=== PATIENT | male | born 1975 | race Two or more races ===

== ENCOUNTER 2018-04-14 07:49 | Day surgery (SDC) | payer BC ==
[~2018-04-14] VITALS: Ht 180.3 cm; Wt 70.8 kg
[2018-04-14] MEDS ORDERED: ATORVASTATIN CA20 MG ORAL (09:00)
[2018-04-14] MEDS ORDERED: COQ1050 MG PO (09:00)
[2018-04-14] MEDS ORDERED: ASPIR 8181 MG ORAL (09:00)
[2018-04-14] MEDS ORDERED: FISH OIL CAP1000 MG ORAL (09:00)
[2018-04-14] MEDS ORDERED: MULTIVITAMINS1 EAC8 ORAL (09:00)
[2018-04-14] MEDS ORDERED: PROBIOTIC1 EAC2 PO (09:00)
[2018-04-14 09:03] VITALS: BP 111/73
[2018-04-14] MEDS ORDERED: LR 1000ml ONE (09:30)
[2018-04-14] MEDS ORDERED: Propofol 200mg/20ml IV ONE (09:30)
--- NOTE | 2018-04-14 09:35 | Short Stay Surgery H&P ---
History of Present Illness History of Present Illness Chief Complaint see recent office note HPI Fredi Rubio is a 43 year old male who was admitted on for Colon Screening, Abdominal Pain Patient History Allergies: Coded Allergies: PENICILLINS (Verified Allergy, Intermediate, 04/14/18) hives Medication History Scheduled Aspirin* (Aspir 81*), 81 MG ORAL DAILY, (Reported) Atorvastatin Calcium* (Atorvastatin Calcium*), 10 MG ORAL BEDTIME, (Reported) Fish Oil (Fish Oil 1,000 mg Capsule), 1,000 MG ORAL DAILY, (Reported) Lactobacillus Acidophilus (Probiotic), 1 EACH PO DA, (Reported) Multivitamin With Minerals (Multivitamins With Minerals*), 1 TAB ORAL DAILY, ( Reported) Ubidecarenone (Coq10), 100 MG PO DA, (Reported) Physical Exam Vital Signs Last Vital Signs Date Time Temp Pulse Resp B/P (MAP) Pulse Ox O2 Delivery O2 Flow Rate FiO2 04/14/18 09:03 98.3 64 20 111/73 99 Room Air Plan Attestation Are the patient's medical conditions optimized for surgery? David Anderson MD Apr 14, 2018 09:35
--- NOTE | 2018-04-14 09:35 | Pre-Procedure Note/Attestation ---
Pre-Procedure Note/Attestation Complete Prior to Procedure Planned Procedure: not applicable Procedure Narrative: esophagogastroduodenoscopy and colonoscopy Indications for Procedure Pre-Operative Diagnosis: rectal bleed Attestation I attest that I discussed the nature of the procedure; its benefits; risks and complications; and alternatives (and the risks and benefits of such alternatives ), prior to the procedure, with the patient (or the patient's legal account executive sales representative). I attest that, if there was a reasonable possibility of needing a blood transfusion, the patient (or the patient's legal account executive sales representative) was given the [facility] standardized written summary, pursuant to the Mani Nigel Blood Safety Act ([place] Health and Safety Code # 1645, as amended). I attest that I re-evaluated the patient just prior to the surgery and that there has been no change in the patient's H&P, except as documented below: David Anderson MD Apr 14, 2018 09:35
[2018-04-14 10:30] VITALS: BP 109/75
--- NOTE | 2018-04-14 10:30 | Anethesia Preoperative Eval ---
Anesthesia Pre-op PMH/ROS General Date of Evaluation: Apr 14, 2018 Time of Evaluation: 09:33 ASA Score: ASA 2 Mallampati Score Class I : Soft palate, uvula, fauces, pillars visible Class II: Soft palate, uvula, fauces visible Class III: Soft palate, base of uvula visible Class IV: Only hard plate visible Mallampati Classification: Class I Allergies: Coded Allergies: PENICILLINS (Verified Allergy, Intermediate, 04/14/18) hives Patient NPO?: Yes Past Medical History HEENT: Reports: [place] (L) Anesthesia Pre-op Phys. Exam Physician Exam Last Vital Signs Date Time Temp Pulse Resp B/P (MAP) Pulse Ox O2 Delivery O2 Flow Rate FiO2 04/14/18 09:03 98.3 64 20 111/73 99 Room Air Airway Exam Mallampati Score: Class I Zhane Lopez MD Apr 14, 2018 10:30
--- NOTE | 2018-04-14 10:31 | Immediate Post-Op Evaluation ---
Immediate Post-Op Evalulation Immediate Post-Op Evalulation Procedure: egd colon Date of Evaluation: Apr 14, 2018 Time of Evaluation: 10:31 Nausea: No Vomiting: No Zhane Lopez MD Apr 14, 2018 10:31
[2018-04-14 10:35] VITALS: BP 115/77
[2018-04-14 10:43] VITALS: BP 122/83
[2018-04-14 10:54] VITALS: BP 140/62
--- NOTE | 2018-04-14 11:14 | Endoscopy Procedure Note ---
Endoscopy Procedure Note General Indication for Procedure: wt loss Procedures Performed: EGD, colonoscopy Operative Findings/Diagnosis: gastritis, one colon polyps Specimen: yes Pt Tolerated Procedure Well: Yes Estimated Blood Loss: none Anesthesia Anesthesiologist: Christine Anesthesia: MAC Inserted Devices Implant(s) used?: No Quality Quality of Bowel Preparation: Good Did scope reach the cecum?: Yes Was there any complications?: No GI Core Measures 50 yrs or older w/o bx or poly: No 10yrs. F/U not recommended: Yes If not recommended, why?: Above average risk 10 yrs. F/U needed: Yes 18 years or older w/prev. colo: Yes <3yrs. since last colonoscopy: No David Anderson MD Apr 14, 2018 11:14
[2018-04-14 11:20] VITALS: BP 115/76
--- NOTE | 2018-04-14 12:10 | 48 Hour Post Anesthesia Eval ---
Post Anesthesia Evaluation Procedure: egd colon Date of Evaluation: Apr 14, 2018 Time of Evaluation: 12:10 Nausea: No Vomiting: No Zhane Lopez MD Apr 14, 2018 12:10
--- NOTE | 2018-04-14 16:15 | Procedure Note ---
DATE OF PROCEDURE: 04/14/2018 SURGEON: David Anderson M.D. PROCEDURE: Upper endoscopy with biopsy and colonoscopy with biopsy. ANESTHESIA: Per DrLuma . INSTRUMENT: Olympus adult flexible upper endoscope and colonoscope. INDICATION: Weight loss. The procedure, risks, benefits, and possible consequences, including hemorrhage, aspiration, perforation and infection, and alternative treatments, were explained to the patient/legal guardian by Dr. David Anderson and the patient/legal guardian understood and accepted these risks. DESCRIPTION OF PROCEDURE: After informed consent was obtained and the patient was adequately sedated, Olympus upper endoscope was advanced from the mouth into the second portion of the duodenum and retroflexion was performed in the stomach. The patient had evidence of diffuse gastritis. Random biopsy from antrum and body was obtained to rule out H. pylori infection. There was no obvious ulceration or mass. No esophagitis. Little bit weak lower esophageal sphincter tone. No obvious large hiatal hernia. At this time, upper endoscope was retrieved. The patient was turned over for colonoscopy. First, rectal exam was performed which was normal. Then, the scope was advanced from the rectum into the cecum and then subsequently into terminal ileum. Quality of prep was very good. The patient had some minimum atrophy of the mucosa in the terminal ileum. There maybe one small erosion in the terminal ileum. Random biopsy from this area was obtained to rule out colon disease. The rest of the colonoscopy examination grossly within normal limits. There was one diminutive polyp in the descending colon which was removed with cold biopsy forceps technique. The patient has some minimum proctitis may be nonspecific possibly secondary to prep. Random biopsy from this area was also obtained. Retroflexion of rectum showed evidence of internal hemorrhoids. SUMMARY OF FINDINGS: 1. Gastritis, status post biopsy. 2. Weak lower esophageal sphincter. 3. Atrophy and shallow erosion in TI, status post biopsy. 4. One colonic polyp removed, see above for details. 5. Proctitis status post biopsy. 6. Internal hemorrhoids. RECOMMENDATIONS: Follow up biopsy results and treat accordingly. David Anderson M.D. DR: Raj JOB#: [id number] CC:
== END 2018-04-14 12:00 | disposition home or self-care (01) ==
LOC: GAS 07:49
DX: R63.4 Abnormal weight loss (principal); K29.50 Unspecified chronic gastritis without bleeding; K62.89 Other specified diseases of anus and rectum; D12.4 Benign neoplasm of descending colon; K63.3 Ulcer of intestine; K64.8 Other hemorrhoids; Z79.82 Long term (current) use of aspirin; Z88.0 Allergy status to penicillin
CPT/HCPCS: 43239; 45380; J2704; 94003; 94150